=== PATIENT | female | born 1960 | race Caucasian/White ===

== ENCOUNTER → 2018-11-12 09:28 | Outpatient (CLI) | payer OTHER, SELFPAY | PROVIDERS: PCP Family Medicine; Visit Provider Specialist | DX: N91.2 Amenorrhea, unspecified (principal) | CPT/HCPCS: 36415; 83001 ==

== ENCOUNTER → 2021-05-03 09:28 | Outpatient (CLI) | payer OTHER, SELFPAY ==
[2021-05-03 09:49] LABS: COVID19 -Nasal RAPID Negative (Negative)
== END ==
PROVIDERS: PCP Family Medicine; Referring Provider Physician Assistant; Visit Provider Physician Assistant
DX: Z20.822 Contact with and (suspected) exposure to COVID-19 (principal)
CPT/HCPCS: 87635

== ENCOUNTER 2021-05-04 08:39 | Day surgery (SDC) | payer OTHER, SELFPAY ==
[2021-05-03 09:14] VITALS: BMI 28.1
[2021-05-04 09:10] VITALS: BP 149/97; PULSE 90; RESP 14; TEMP 36.8; O2SAT 96; BMI 28.1
[2021-05-04] MEDS: LACTATED RINGERS 1,000 ML 42 ML IV (09:22)
--- NOTE | 2021-05-04 11:03 | PM.PREOP ---
Pre-operative Note COVID-19 COVID-19 status: Negative Interval Note History & Physical reviewed/Exam performed by Physician: Yes Changes to H&P: No
[2021-05-04] MEDS: ACETAMINOPHEN 325 MG TABLET 975 MG PO (12:10)
[2021-05-04] MEDS: OXYCODONE IR 5 MG TABLET PO (12:10)
--- NOTE | 2021-05-04 12:43 | SUR.PREOP ---
Pts case was canceled due to an ortho plate that was not avail prior to the time of surgery. Assisted Dr Garcia with placing a partial fiberglass support piece to pts shoulder area. Immobilizer was then used for added support. Pt was then medicated with 975mg tylenol and 5mg percolone for pain after procedure. Pt was then discharged in stable condition via wc to ed entrance.
== END 2021-05-04 08:40 | disposition home or self-care (01) ==
LOC: OR 08:42
PROVIDERS: PCP Family Medicine; Referring Provider Orthopaedic Surgery Foot and Ankle Surgery; Visit Provider Orthopaedic Surgery Foot and Ankle Surgery
DX: S42.291A Other displaced fracture of upper end of right humerus, initial encounter for closed fracture (principal); Z53.09 Procedure and treatment not carried out because of other contraindication
CPT/HCPCS: 23615; J1100; J2250; J2405; J2704; J3010

== ENCOUNTER 2021-05-08 06:17 | Day surgery (SDC) | payer OTHER, SELFPAY ==
[2021-05-08] VITALS (11 sets, daily range): BP systolic 116–142; BP diastolic 69–83; PULSE 63–86; RESP 14–18; TEMP 36.3–36.9; O2SAT 94–97; BMI 27.2
[2021-05-08] MEDS: GABAPENTIN 300 MG CAPSULE PO (06:57)
[2021-05-08] MEDS: ACETAMINOPHEN 325 MG TABLET 975 MG PO ×3 (06:57→20:52)
[2021-05-08] MEDS: SCOPOLAMINE 1 PATCH TOP (06:57)
[2021-05-08] MEDS: LACTATED RINGERS 1,000 ML 42 ML IV ×2 (07:10→10:18)
[2021-05-08 07:25] LABS: COVID19 -Nasal RAPID Negative (Negative)
--- NOTE | 2021-05-08 07:32 | PM.PREOP ---
Pre-operative Note COVID-19 COVID-19 status: Negative Interval Note History & Physical reviewed/Exam performed by Physician: Yes Changes to H&P: No
--- NOTE | 2021-05-08 07:51 | SUR.PREOP ---
Block start time [0738] . Monitoring initiated and maintained throughout procedure. No oxygen per Dr. Sun and pt medicated by Dr. Sun. Patient remained stable throughout procedure, no adverse reactions noted. Block end time [0740]. Pt transported to the OR in stable condition.
[2021-05-08] MEDS: CEFAZOLIN 1 GM VIAL 2 GM IV ×3 (08:08→23:57)
--- NOTE | 2021-05-08 08:11 | PM.PROC.1 ---
Procedures Date/Time Date of procedure: 05/08/21 Time of procedure: 07:40 Nerve Block Time out performed: Yes Local anesthetic used: bupivacaine 0.5% Location of anesthetic used: supraclavicular Amount of anesthesia used (mL): 10 Nerve blocks: brachial plexus (Supraclavicular) Procedure successful: Yes Patient tolerated procedure: well and no complications Additional comments: Supraclavicular nerve block performed for post-op pain control at surgeon request. Patient was positioned with IV, O2, monitors and rescue meds available. Prepped and timeout performed. Target identified with continuous ultrasound guidance. 10 mL of bupivicaine 0.5% was injected perineurally with intermittent aspiration and injection. No blood, no paresthesias, no acute complications.
--- NOTE | 2021-05-08 08:21 | SUR.OPER ---
Supine on padded OR bed, head on pillow and gel donut, left arm secured on padded arm boards at <90 degrees abduction, right arm on arm table and under control of surgeon, legs uncrossed, safety belt at thigh, tape over blanket over lower legs.
[2021-05-08] MEDS: BUPIVACAINE 0.5% (PF) VIAL 30 ML INJ (08:29)
[2021-05-08] MEDS: EPINEPHrine 1 MG/ML INJ (08:30)
--- NOTE | 2021-05-08 10:46 | PM.OP.1 ---
Operative Date/Time/Diagnoses Date of procedure: 05/08/21 Time of procedure: 08:00 Pre-op diagnosis: Humerus fracture right Post-op diagnosis: same Procedure & Clinicians Procedure: Open reduction internal fixation right [place]er[place] cpt 24205 Same procedure as scheduled: Yes Indications: The patient is a 60-year-old geexq-umne-ajnumogh female that sustained a proximal right humeral shaft fracture with extensive to proximal humerus and humeral neck. This was a result of a fall. This was displaced and angulated fracture. Fracture angulation with valgus alignment exited right at the axilla making the fracture difficult to control by closed means. She was counseled on the risks benefits and alternatives to surgery. Open reduction internal fixation was recommended to restore alignment stability and promote early range of motion and use of the dominant extremity. The risks and benefits of the procedure have been discussed with the patient even opportunity to ask questions. The risks of surgery include but are not limited to infection, malunion, nonunion, persistence of pain, damage to nerves and blood vessel. Consent was signed in the office. Surgeon: Andra Garcia Click Yes if Unassisted: Yes Anesthesia Type: General, Peripheral nerve block and Local Operative Notes Findings: Displaced right humerus fracture shaft with metaphyseal split into the proximal humerus. This was reduced and stabilized with a long 12 hole curved Wilder and Nephew proximal humerus plate from the evos set Prosthetic devices, grafts, tissues, transplants, or devices: Wilder and nephew evos 12 hole 3.5 proximal humerus plate. Locking and nonlocking screws. Additional interfragmentary 3.5 lag screw outside of the plate. Estimated Blood Loss (mL): 200 Blood products transfused: none Tourniquet time (min): 0 Procedure in detail: Patient was seen in the preoperative area the site of surgery was marked informed consent confirmed. The patient underwent a preoperative regional anesthetic block by the anesthesia team for postoperative pain control. She was brought into the room. General anesthesia was administered. The patient was positioned supine on the operative table. A plexiglass arm table was placed on the operative side. All bony prominences well padded. SCDs were on the lower extremities. The table was turned 90? and the C-arm was brought in to make sure that appropriate intraoperative images were able to be obtained. Next the right upper extremities prepped and draped in the standard sterile fashion. A formal time-out procedure was performed confirming the patient's side and site of surgery administration of appropriate preoperative antibiotics. All were in agreement. Implants were in the room and accounted for. Attention turned to the right upper extremity a deltopectoral extending into an anterior lateral approach for the right humerus was drawn out starting near the coracoid and extending through the deltopectoral interval and then along the lateral border of the biceps muscle. Incision was made through the skin subcutaneous tissue. The deltopectoral interval was opened and the cephalic vein was identified and carefully protected and retracted with the deltoid laterally. Deltopectoral interval was opened and extending distally the biceps muscle belly was exposed and retracted medially. This exposed the brachialis deep over the humeral shaft. Once this was exposed this was split exposing the humeral shaft. The fracture was cleaned of fracture hematoma. Fracture was reduced and provisionally pinned. An intra fragmentary lag screw was placed outside of the plate for the distal edge of the fracture this was completed with a 3.5 cortical screw in lag fashion. Proximally the long head of the biceps tendon was identified and the deltoid was retracted laterally in order to create a position for the proximal edge of the proximal humeral locking plate. Once the fracture was provisionally reduced with K-wires and checked on AP and lateral fluoroscopic images the appropriate plate was selected. A 9 hole plate was felt to be too short so the 12 hole plate was selected. This was positioned along the humerus and provisionally pinned and alignment was checked. Once this was completed the plate was fixed to bone with a nonlocking screw in the head proximally and nonlocking screw distally in the shaft to compress to the bone followed by lag screw obliquely across the fracture site through the plate. This was then changed out to a shorter screw at the end of the case. Additional locking screws in the humeral head and nonlocking screws and locking screws in the shaft. Final alignment in AP and lateral images was obtained demonstrating appropriate alignment of the humeral fracture and stability of the construct. Appropriate screw length and no evidence of intra-articular screw penetration was demonstrated. The arm moved as a unit. The wound was thoroughly irrigated. Good hemostasis was obtained. The incision was closed in layers with 2-0 Vicryl deep 4-0 Monocryl subcutaneous and brie in the skin. Additional local anesthetic was infiltrated at the incision site. Aquacel dressing was placed. The drapes were removed the patient was woken from anesthesia and placed to a sling. Patient was taken to the recovery room in good condition. There no immediate complications from this procedure. All counts were correct. Post-operative Condition: stable Disposition: PACU Plan for aftercare: Will be admitted to the floor for monitoring overnight for pain control will have 2 doses of postoperative antibiotics. Will be discharged home on postop day 1. Will be nonweightbearing in the sling at all times. If around postop day 3 patient is feeling comfortable may come out of the sling with the arm hang down for Codman exercises otherwise be in the sling at all times. May do gentle range of motion of the wrist and fingers. Baby aspirin 81 mg b.i.d. for blood clot prophylaxis 1 month
--- NOTE | 2021-05-08 10:47 | DI.RAD.S_ITS ---
PROCEDURE: XR HUMERUS RT 2V INDICATIONS: ORIF RIGHT HUMERUS TECHNIQUE: 7 intraoperative views of the humerus were acquired. COMPARISON: [facility], CR, XR HUMERUS RIGHT, 04/28/2021, 22:47. FINDINGS: Right humerus ORIF for proximal shaft fracture. There is improved alignment, displacement, and angulation. IMPRESSION: Intraoperative image guidance provided. Dictated by: Hector Doyle M.D. on 05/08/2021 at 10:57 Approved by: Hector Doyle M.D. on 05/08/2021 at 11:00
[2021-05-08] MEDS: fentaNYL 100 MCG/2 ML INJ IV ×4 (10:51→11:10)
[2021-05-08] MEDS: OXYCODONE IR 5 MG TABLET PO ×2 (11:03→21:24)
[2021-05-08] MEDS: LACTATED RINGERS 1,000 ML 100 ML IV ×2 (11:45→20:53)
--- NOTE | 2021-05-08 12:29 | PC.NURSE ---
Admit: Report received from PACU. Care assumed 1130. Patient A&Ox4. VSS. Right upper extremity immobilized in sling. Ice pack in place. CMS intact. Pain 4/10, tolerable. Denies nausea, tolerating PO intake. Spouse at bedside.
--- NOTE | 2021-05-08 16:05 | PT.IIE ---
Current Diagnoses Other displaced fracture of upper end of right humerus, initial encounter for closed fracture (05/08/21) Surgery Performed Operation Date: 05/08/21 07:45 Actual Procedures p ORIF Proximal Humerus(Right) - Andra Garcia MD Surgical History (Last Updated 09/23/18 @ 21:40 by Cyndee Reese) Anesthesia Fibroid tumor (~1996) History of tonsillectomy (~1969) Salivary gland disease (~2005) Medical History (Last Updated 05/03/21 @ 09:19 by Karin Guido RN) Chicken pox (~1963) Closed right humeral fracture (04/2021) Vision disorder Physical Therapy Inpatient Evaluation/Re-Eval M1 PT/OT-IP Prior Functional Status Start: 05/08/21 17:02 Freq: NEEDED Status: Active Protocol: Document 05/08/21 16:05 AB (Rec: 05/08/21 17:18 AB [id number]) Medical Review Prior Functional Status Medical History Reviewed Yes Communication able to make needs known Mobility and Gait pt stated that she is independent with all mobilities and ambualation without AD Social History Household Members spouse Living Arrangements House Number of Floors (Floors) One Floor Number of Stairs To Enter/Railing? 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 Toro: Will be nonweightbearing in the sling at all times. If around postop day 3 patient is feeling comfortable may come out of the sling with the arm hang down for Codman exercises otherwise be in the sling at all times. May do gentle range of motion of the wrist and fingers Weight Bearing Status Weight Bearing Status Non-Weight Bearing Allowed Weight Bearing Amount (enter % NWB RUE or #) (%) M3 PT-IP Subjective Start: 05/08/21 17:02 Freq: NEEDED Status: Active Protocol: Document 05/08/21 16:05 AB (Rec: 05/08/21 17:18 AB [id number]) Subjective Physical Therapy Visit Type Type Initial Evaluation Visit Start Time 16:05 Visit Stop Time 16:40 Total Visit Minutes 35 Number of TACTICAL DEBRIEFER OFFICER Visits 0 Physical Therapy Visit Comments Patient Comments pt is agreeable to do PT Therapy Pain Assessment Pain Present Pain Present Denied Pain M4 PT-IP Mobility and Gait Start: 05/08/21 17:02 Freq: NEEDED Status: Active Protocol: Document 05/08/21 16:05 AB (Rec: 05/08/21 17:18 AB [email or web address]) PT-Bed Mobility Assessment Supine to Sit Supine to Sit Standby Assistance Sit to Supine Sit to Supine Standby Assistance PT-Transfer Assessment Sit to and From Stand Sit to and from Stand Standby Assistance Equipment Transfer Assistive Device None,Gait Belt Orthotic/Prosthetic Devices or Brace: Yes Comments Mobility Comments educated pt on shoulder precautions. completed supine to sit SBA. pt was able to sit on EOB SBA. educated pt and spouse on how to manage the sling. pt completed sit to stand SBA and ambulated in room without AD sBA. pt refused to do stair climbing and requested to go back to bed. positioned in bed. call light and table placed within reach. Gait Assessment Gait Gait Assistance Required: Standby Assistance Distance (Feet) 40 Able to Maintain Weight Bearing Status Yes During Gait Assistive Devices Assistive Device None,Gait Belt Orthotic/Prosthetic Devices or Brace: Yes Factors Limiting Gait Function Factors Limiting Gait Function Decreased Activity Tolerance, Decreased Sensation,Decreased Strength,Limited Range of Motion Comments Gait Comments pls refer to mobility section for details PT-Balance Assessment Sitting Balance and Reactions Static Sitting Balance Ability Good Dynamic Sitting Balance Ability Good Standing Balance and Reactions Static Standing Balance Ability Good Dynamic Standing Balance Ability Good Device Used without AD M5 PT-IP Objective Assessments Start: 05/08/21 17:02 Freq: NEEDED Status: Active Protocol: Document 05/08/21 16:05 AB (Rec: 05/08/21 17:18 AB [id number]) Orientation Orientation/Cognition Level of Alertness Alert Orientation Name,Place,Situation Language Function Ability No Deficits Noted Safety Awareness Understands Safety Issues Memory Description No Deficits Noted Gross Range of Motion Upper Extremity ROM Assessment Right Impaired Impairments RUE on sling Strength Lower Extremity Strength Assessment Within Functional Limits Coordination Assessment Gross Coordination Gross Coordination WNL Sensation Assessment Sensation Sensation Description Numbness Comments Sensation Comments RUE still numb M6 PT-IP Treatment Start: 05/08/21 17:02 Freq: NEEDED Status: Active Protocol: Document 05/08/21 16:05 AB (Rec: 05/08/21 17:18 AB [id number]) Physical Therapy Treatment Education Education Provided Precautions,Weight Bearing Status,Safety Brace Education Donning,Earling,Patient, Caregiver M7 PT-IP Assessment and Plan Start: 05/08/21 17:02 Freq: NEEDED Status: Active Protocol: Document 05/08/21 16:05 AB (Rec: 05/08/21 17:18 AB [id number]) PT Summary Assessment and Plan Potential Rehabilitation Potential Good Status of Condition at Evaluation Stable Summary Impairments Pain,ROM,Strength,Balance, Coordination,Sensation,Tone, Cognition,Bed Mobility, Transfers,Gait,Activity Tolerance Assessment Summary pt requiring SBA with mobility . educated pt and spouse regarding sling management. pt plans to go home and spouse to assist her and also will have her son come in to assist when spouse is at work. will have to complete stair climbing training prior to d/c . Goals Bed Mobility Goal Independent Transfer Goal Independent Gait Goal Independent Gait Distance 200 Other Goals up/down 4 steps L rail mod I Days to Meet Goals 5 Frequency of Treatment Frequency Of Treatment Twice a Day Treatment Plan Physical Therapy Treatment Plan Bed Mobility Training,Transfer Training,Gait Training, Therapeutic Exercise,Balance Retraining,Post Op Education, Discharge Planning,Hot or Cold Pack,Neuromuscular Re-ed, Coordination Retraining,Manual Therapy Precautions Shoulder Precautions Sling Other Precautions per Dr. Toro: Will be nonweightbearing in the sling at all times. If around postop day 3 patient is feeling comfortable may come out of the sling with the arm hang down for Codman exercises otherwise be in the sling at all times. May do gentle range of motion of the wrist and fingers Recommendations To Nursing Amount of Assist Needed Standby Assistance Discharge Recommendations PT Discharge Recommendations Home with Assistance, Outpatient PT Transportation Needs at Discharge Private Vehicle
[2021-05-08] MEDS: DOCUSATE 100 MG CAPSULE PO (20:52)
[2021-05-09 00:10] VITALS: BP 119/68; PULSE 72; RESP 18; TEMP 36.9; O2SAT 95
--- NOTE | 2021-05-09 00:25 | PC.NURSE ---
Patient is alert and oriented. Breath sounds diminished but CTA with RA sat of 95%. HRR. Denies nausea. BT present and is passing flatus. Has been voiding; denies dysuria, frequency or urgency. Is able to move herself in bed and is up to bathroom with SBA. Right UE in sling; strong radial pulse, denies tingling/numbness, and is able to move all fingers with good capillary refill. At shift change stated pain was still 3/10 and was requesting additional Oxycodone (5mg given at 2123). Ice pack was applied and upon return to room states pain is now 1-2/10 and no longer needing anything more for pain at this time. Aquacel dressing is CDI. Wearing bilateral calf SCD's. Fall risk score is moderate and bed alarm is activated.
[2021-05-09] MEDS: OXYCODONE IR 5 MG TABLET PO ×2 (02:12→05:26)
[2021-05-09 05:40] VITALS: BP 128/82; PULSE 73; RESP 18; TEMP 36.7; O2SAT 95
--- NOTE | 2021-05-09 07:34 | P.DS_ITS ---
History of Present Illness History of Present Illness Date Patient Seen: 05/09/21 Time Patient Seen: 07:49 Chief complaint: Right proximal humerus fracture Narrative: Patient is a 60-year-old baxop-nrxq-doextmfe female that sustained a displaced and angulated right proximal humerus fracture of the proximal shaft with extension into the humeral neck and nondisplaced fracture line into the head. She was counseled on surgical and nonsurgical options. Decision was made for open reduction internal fixation. Discharge Providers Provider Date of admission: 05/08/21 Discharge Date: 05/09/21 Primary care physician: Jitendra Rose MD Consults: 05/08/21 11:23 Consult to Physical Therapy Evaluate & Treat Comment: wilfredo MCCOY. Physician Instructions: Evaluate and Treat Discharge provider: Andra Garcia MD Summary Hospital Course Discharge Diagnosis: Fracture right proximal humerus Hospital Course: Patient underwent open reduction internal fixation on the date of surgery was admitted to the hospital afterwards for monitoring and pain control. She did well with physical therapy tolerated a p.o. diet and was weaned from IV to oral pain medications without difficulty. She worked with physical therapy and was appropriate for discharge home on postoperative day 1. Status at Discharge Cognitive/behavioral status at discharge: oriented Functional status at discharge: independent ambulation Overall status at discharge: patient is progressing back to baseline Time Spent with Patient Time spent: Less than 30 minutes Exam Vital Signs (past 8 hours): - 05/09/21 00:10 05/09/21 05:40 Temperature 98.5 F 98.0 F Pulse Rate 72 73 Respiratory Rate 18 18 Blood Pressure 119/68 128/82 Pulse Oximetry 95 95 Oxygen Delivery Method Room Air Oxygen Flow Rate 0 Narrative Exam Narrative: Patient is alert oriented no acute distress lying in bed. Right upper extremity in a sling. No complaints. Vital signs stable. Reading room air. No increased respiratory effort. Heart regular rate and rhythm. Right upper extremity compartments soft. Aquacel dressing in place. Scant drainage. No erythema. Forearm compartments soft. Demonstrates active wrist flexion and extension demonstrates finger flexion and extension. Sensation grossly intact to light touch axillary ulnar radial and medial nerve distributions. Palpable radial pulse. [facility] Medical History Chicken pox (~1964) Closed right humeral fracture (04/2021) Vision disorder Surgical History Anesthesia Fibroid tumor (~1996) History of tonsillectomy (~1969) Salivary gland disease (~2005) Family History Father COPD (chronic obstructive pulmonary disease) Social History household members: spouse Smoking Status: Never smoker alcohol intake: current Discharge Assessment & Plan Assessment and Plan Assessment: Status post open reduction internal fixation right proximal humerus fracture Plan of Treatment: Discharge home today. Medication sent electronically. Additionally we will use aspirin 81 mg b.i.d. for blood clot prophylaxis. May take regular Tylenol as well. Encouraged stool softener to prevent constipation. Will follow up in 2 weeks for staple removal. May shower with the Aquacel dressing. Otherwise remain In the sling. Will remain in the sling all times. After postop day 3 if comfortable may initiate Codman/pendulum exercises to 3 to 5 times a day with the arm is taken out of the sling hangs down at the side with gentle circles with the shoulder. May do gentle elbow wrist and finger range of motion. No lifting. Discharge Plan Discharge Plan Patient Disposition: Home Discharge orders & Medications Discharge Orders: Discharge (Order); Ordered 05/09/21 Ordered By: Andra Garcia Prescriptions: New oxycodone 5 mg tablet 5 - 10 mg PO Q4H PRN (Reason: pain) Qty: 42 RF: 0 ondansetron HCl [Zofran] 4 mg tablet 4 mg PO Q8H PRN (Reason: nausea and vomiting) Qty: 5 RF: 1 Continued acetaminophen 325 mg Tablet 650 mg PO Q4H PRN (Reason: Pain (Scale Score 1-3)) RF: 0 Discontinued oxycodone 5 mg tablet 5 mg PO Q6H PRN (Reason: Pain (Scale Score 1-3)) RF: 0 Follow up/Referrals: Jitendra Rose MD [Primary Care Provider] - Diet/Activity/Treatments Diet: Diet as Tolerated Activity: Sling at all times. May do gentle elbow wrist and finger range of motion. Starting on postoperative day 3 May come sling 3 to 5 times a day for gentle pendulum exercises of the shoulder. Other treatments: At-Home Instructions - Dr. Garcia Surgery: Humerus open reduction internal fixation Cast/Splint/Dressing Care Instructions 1) Keep cast/dressing clean and dry. 2) May bathe -the Aquacel dressing is waterproof and will withstand shower. But do not submerge it. 3) Observe for increasing pain in the extremity, finger/toe-tips turning blue/purple, or numbness and tingling in your toes/fingers. Should any of these symptoms arise, you need to be seen immediately for evaluation of swelling and increasing compartment pressures within your affected extremity. However some swelling and ecchymosis distally in the arm, wrist and hand is very common after shoulder 4) You may ice your extremity, being careful to prevent hypothermia all injury. Make sure there is a she had her towel between your skin and the ice Activity No lifting with the affected upper extremity greater than a pencil No driving while on narcotic pain medication. You must remain non-weight bearing on your operative extremity. Use sling unless doing Codman/ pendulum exercises Discharge Pain Medications You will be given a prescription for pain medication. You should start taking this the same day after your surgery. Wean off as tolerated. Do not wait to take the pain medication until the pain is severe, as it will be difficult to catch up once this occurs. The pain medication usually reaches its full effect ~1 hour after ingesting. If you have been sent home on Colace, this medication should be taken until you are off all narcotic (i.e. Vicodin, Percocet, Oxycodone, etc) pain medications, to prevent constipation. You may also obtain this or another stool softener over the counter to prevent or alleviate constipation. Percocet or Vicodin have Tylenol in their ingredient lists. You must be careful not to exceed 3,000mg (3 grams) of Tylenol, from all sources, within a single 24-hr period. This means that you may not take more than 10 pills within a 24- hr period. Do NOT take Regular or Extra Strength Tylenol when taking your Percocet or Vicodin medications. -IF you have been given a Toradol/ketorolac prescription, this is a very strong anti-inflammatory. Do not take qiha-vlw-qbxfngm anti-inflammatories (ibuprofen, Aleve, Advil, Motrin) while taking the Toradol/ketorolac. Once you are finished with this prescription, then you can resume yeat-aza-zjkqwwq anti- inflammatories. You can still take your narcotic pain medication and Tylenol while taking the Toradol/ketorolac. -Some common side effects of the narcotic pain medications (Percocet, Oxycodone, Vicodin, etc.) include nausea and itching. Benadryl is a great over the counter medication that helps calm your stomach, decreases your anxiety levels, and minimizes the itching. You can easily purchase this at your local pharmacy as an yygo-fdr-srdbglg medication. Please abide by the instructions as printed on the bottle. If your nausea persists, make sure to take small amounts of crackers or other charcoal kiln burner foods. Follow-Up/Emergency Contacts Please call for an appointment in either [place] or [place], if one has n ot been scheduled. Follow up 2 weeks after surgery. [phone] Contact the office if you have any of the following: ? Painful swelling or numbness ? Unrelenting pain ? Fever (over 101?- it is normal to have a low grade fever for the first day or two following surgery) or chills ? Redness around the incisions ? Color changes ? Continuous bleeding or drainage from the incision (a small amount is expected) ? Excessive nausea or vomiting ? Difficulty breathing If you have an emergency that requires immediate attention, proceed to the nearest emergency room. Blood Clot Prophylaxis Development of a blood clot after an upper extremity surgery is very rare however aspirin is 1 way to minimize blood clots without increasing a bleeding risk too much. You will need to complete a total 6-week (42 days) course of Aspirin (81 mg twice daily) after surgery, to minimize the risk of blood clots following surgery. You may alternatively purchase or use zefh-kjp-xqfcpgz generic equivalent Aspirin. If you already have ?baby? Aspirin (81mg) at home, you can take 1 ?baby? Aspirin in the morning and the evening. Pain Medications: It is the policy of [facility] that narcotic medications will only be refilled during office hours. Additionally, due to the alarming rate of narcotic pain medication abuse/dependence, it has become necessary for physician practi fanny to closely manage patient use of prescription narcotic pain relievers, such as Vicodin ([place]), Percocet, and Oxycodone products. Narcotic pain management in the postoperative period may not exceed 6 weeks. If narcotic pain management is required beyond 90 days, then a referral to a Chronic Pain Specialist will be made. If a request for a medication prescription has been made, the physician must review your chart prior to authorizing the request. Please be patient with office staff. If you call during patient hours, your call may not be returned until the end of the day. Dr. Andra Garcia [address] [email or web address] Exercises for Shoulder Flexibility: Pendulum Exercise Improving your flexibility can reduce pain. Stretching exercises also can help increase your range of pain-free motion. Breathe normally when you exercise. And try to use smooth, fluid movements. Follow any special instructions you are given. If you feel pain, stop the exercise. If the pain continues after stopping, call your healthcare provider. Here are the steps for the pendulum exercise. Ask your physical therapist to demonstrate the exercise, if needed. ? Lean over with your good arm supported on a table or chair. You can sit or stand to do this exercise. Ask your physical therapist which position is best for you. ? Relax the arm on the painful side, letting it hang straight down. ? Slowly begin to swing the relaxed arm. Move it in a small tlingit & haida, gradually making it bigger if you can. Then reverse the direction. Next, move it backward and forward. Finally, move it side to side. Skin/Wound/Dressing Care Report to your healthcare provider any signs of infection, such as:: chills, fever, night sweats, increased pain, unusual drainage and unusual redness Discharge Data Primary Care Provider: Jitendra Rose Attending Provider: Andra Garcia Quality VTE Deep Vein Thrombosis/Pulmonary Embolism Present on Admission: No
[2021-05-09 08:40] VITALS: BP 122/60; PULSE 80; RESP 18; TEMP 36.1; O2SAT 97
[2021-05-09] MEDS: ACETAMINOPHEN 325 MG TABLET 975 MG PO (08:46)
[2021-05-09] MEDS: OXYCODONE IR 10 MG TABLET PO (08:46)
[2021-05-09] MEDS: DOCUSATE 100 MG CAPSULE PO (08:46)
--- NOTE | 2021-05-09 09:00 | PT.IPTN ---
Current Diagnoses Other displaced fracture of upper end of right humerus, initial encounter for closed fracture (05/08/21) Surgery Performed Operation Date: 05/08/21 07:45 Actual Procedures p ORIF Proximal Humerus(Right) - Andra Garcia MD Physical Therapy Treatment Note M2 PT-IP Current Condition Start: 05/08/21 17:02 Freq: NEEDED Status: Discharge Protocol: Document 05/08/21 16:05 AB (Rec: 05/08/21 17:18 AB [email or web address]) Physical Therapy Current Condition Current Condition Evaluation Date 05/08/21 Treatment Diagnosis R humerus fx s/p ORIF; difficulty in walking Onset Date 05/08/21 Precautions Shoulder Precautions Sling Other Precautions per Dr. Toro: Will be nonweightbearing in the sling at all times. If around postop day 3 patient is feeling comfortable may come out of the sling with the arm hang down for Codman exercises otherwise be in the sling at all times. May do gentle range of motion of the wrist and fingers Weight Bearing Status Weight Bearing Status Non-Weight Bearing Allowed Weight Bearing Amount (enter % NWB RUE or #) (%) M3 PT-IP Subjective Start: 05/08/21 17:02 Freq: NEEDED Status: Discharge Protocol: Document 05/09/21 09:00 AB (Rec: 05/09/21 13:45 AB [email or web address]) Subjective Physical Therapy Visit Type Type Treatment Note Visit Start Time 09:00 Visit Stop Time 09:41 Total Visit Minutes 41 Number of STEEL FINISHER Visits 0 Physical Therapy Visit Comments Patient Comments agreeable to do PT; spouse in room Therapy Pain Assessment Pain When Pain Assessed At Rest Pain Present Pain Present Pain Reported Location r arm Intensity 5 Scale Used Numeric (0 - 10) Pain Management Techniques Apply Cold,Modification of Treatment,Re-positioning, Timing of Activity with Medications M4 PT-IP Mobility and Gait Start: 05/08/21 17:02 Freq: NEEDED Status: Discharge Protocol: Document 05/09/21 09:00 AB (Rec: 05/09/21 13:45 AB [id number]) PT-Bed Mobility Assessment Supine to Sit Supine to Sit Standby Assistance Sit to Supine Sit to Supine Standby Assistance PT-Transfer Assessment Sit to and From Stand Sit to and from Stand Standby Assistance Equipment Transfer Assistive Device None,Gait Belt Comments Mobility Comments reviewed shoulder precautions, weight bearing and HEP on RUE as per Dr. Choudhury's POC dated 05/09/21: gentle ROM on elbow/wrist/hand and POD3 pendulum per pt's tolerance. pt completed gentle ROM on R elbow/wrist/fingers. PT demonstrated postioning and technique for pendulum exercise and per doctor's order only do after 3rd post- op day and per pt's tolerance. educated on positioning and UB dressing technique. Pt requested to have her clothes on. assisted and educated pt on how to do UB LB dressing safely. PT assisted. pt was able to maintain standing balance without AD while managing brief/pants. Pt was able to put shirt on with PT assisting on RUE. Pt's spouse was able to liam pt's sling. reminded spouse that he will be assisting pt with dressing at home and agreed. pt ambulated without AD SBA towards the stairs. completed stairs using L rail SBA. stated that there is another way to get out of the house and rail will still be on the L. informed pt that she can also go sideways hold on R rail descending with L hand. pt demonstrated and completed SBA. pt ambulated back to her room SBA. requested to go back to bed and completed SBA. positioned in bed. call light and table placed within reach. Gait Assessment Gait Gait Assistance Required: Standby Assistance Distance (Feet) 75 Able to Maintain Weight Bearing Status Yes During Gait Assistive Devices Assistive Device None,Gait Belt Orthotic/Prosthetic Devices or Brace: Yes Factors Limiting Gait Function Factors Limiting Gait Function Decreased Strength,Limited Range of Motion,Pain,Poor Balance Comments Gait Comments pls refer to mobility section for details Stair Climbing Assessment Evaluation Level of Assist On Stairs Standby Assistance Devices Stair Climbing Assistive Devices Left Railing Technique/Endurance Stair Climbing Direction Ascend and Descend Stair Climbing Technique Step Over Step Number of Steps Climbed 3 Stair Climbing Set # Repetitions (reps) 2 Comments Stair Climbing Comments pls refer to mobility section for details M5 PT-IP Objective Assessments Start: 05/08/21 17:02 Freq: NEEDED Status: Discharge Protocol: Document 05/08/21 16:05 AB (Rec: 05/08/21 17:18 AB [id number]) Orientation Orientation/Cognition Level of Alertness Alert Orientation Name,Place,Situation Language Function Ability No Deficits Noted Safety Awareness Understands Safety Issues Memory Description No Deficits Noted Gross Range of Motion Upper Extremity ROM Assessment Right Impaired Impairments RUE on sling Strength Lower Extremity Strength Assessment Within Functional Limits Coordination Assessment Gross Coordination Gross Coordination WNL Sensation Assessment Sensation Sensation Description Numbness Comments Sensation Comments RUE still numb M6 PT-IP Treatment Start: 05/08/21 17:02 Freq: NEEDED Status: Discharge Protocol: Document 05/09/21 09:00 AB (Rec: 05/09/21 13:45 AB [id number]) Physical Therapy Treatment Exercises Exercises Elbow Flexion/Extension,Wrist ROM,Hand ROM Education Education Provided Precautions,Weight Bearing Status,Post-Op Packet,Safety M7 PT-IP Assessment and Plan Start: 05/08/21 17:02 Freq: NEEDED Status: Discharge Protocol: Document 05/09/21 09:00 AB (Rec: 05/09/21 13:45 AB [email or web address]) PT Summary Assessment and Plan Potential Rehabilitation Potential Good Summary Impairments Pain,ROM,Strength,Balance, Coordination,Bed Mobility, Transfers,Gait,Activity Tolerance Progress Towards Goals Progressing Toward Goals Assessment Summary pt requiring SBA with mobility . educated on precautions and HEP. pt plans to go home and spouse/son to assist. informed pt regarding outpt PT needs and agreed to schedule for one. Goals Bed Mobility Goal Independent Transfer Goal Independent Gait Goal Independent Gait Distance 200 Other Goals up/down 4 steps L rail mod I Days to Meet Goals 5 Frequency of Treatment Frequency Of Treatment Twice a Day Treatment Plan Physical Therapy Treatment Plan Bed Mobility Training,Transfer Training,Gait Training, Therapeutic Exercise,Balance Retraining,Post Op Education, Discharge Planning,Hot or Cold Pack,Neuromuscular Re-ed, Coordination Retraining,Manual Therapy Precautions Other Precautions per Dr. Toro: Will be nonweightbearing in the sling at all times. If around postop day 3 patient is feeling comfortable may come out of the sling with the arm hang down for Codman exercises otherwise be in the sling at all times. May do gentle range of motion of the wrist and fingers; May do gently ROM on elbow per Dr. Toro's POC dated Recommendations To Nursing Amount of Assist Needed Standby Assistance Discharge Recommendations PT Discharge Recommendations Home with Assistance, Outpatient PT Transportation Needs at Discharge Private Vehicle
--- NOTE | 2021-05-09 10:42 | PC.NURSE ---
Pt is dressed and ready for discharge home with Spouse Benito. Pt has her arm in a sling as ordered. Pt's Spouse has received caregiver training and they have practiced the stairs. Went over d/c meds, time of last dose, reviewed stroke education, s/s of infection and follow up. Reminded Pt that she is not to drive while on narcotics and to drink plenty of fluids to prevent constipation or dehydration. Serene from Pharmacy also in to see Pt and perform d/c med teaching. Pt denies further questions and was taken out via w/c by RN with Spouse and all belongings.
--- NOTE | 2021-05-09 11:55 | CM.DANOTE ---
Patient is a 60 year old female who was admitted on 05/08/21 for Displaced fx of humerus. Pt has [employer] PREFERRED for insurance and her PCP is Jitendra Rose. EMR was reviewed. Per Ortho MD, pt is tolerating PO and pain is managed and was able to work with therapy and now medically stable to d/c home today. Per PT, pt is active and independent at baseline and does not use DME at home and was able to participate with spouse bedside for CG training and cleared for safe d/c home with assist and outpt PT. 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 Per RN, spouse available to transport home today and no concerns and d/c instruction given and pt safely discharged to POV with no concerns. Plan: Patient discharged home this morning via spouse POV and assist and no further SW needs at this time. VINNIE Luu
== END 2021-05-09 10:46 | disposition home or self-care (01) ==
LOC: OR 06:22 → AC 06:30
PROVIDERS: PCP Family Medicine; Visit Provider Orthopaedic Surgery Foot and Ankle Surgery
PROC: (CPT 23615; principal; 2021-05-08 07:45)
DX: S42.291A Other displaced fracture of upper end of right humerus, initial encounter for closed fracture (principal); W06.XXXA Fall from bed, initial encounter; Z20.822 Contact with and (suspected) exposure to COVID-19
CPT/HCPCS: 23615; 64450; 73060; 76000; 87635; 97110; 97116; 97161; 97530; C9803; J0171; J0690; J3010